=== PATIENT | male | born 1985 | race Caucasian/White ===

== ENCOUNTER 2017-07-15 19:06 | Emergency (ER) | payer OTHER ==
[2017-07-15 19:35] VITALS: BP 128/83
--- NOTE | 2017-07-15 21:19 | UC ---
Respiratory Complaint HPI - HPI Summary HPI Summary: 32 year old smoker who is here with complaints of cough. COUGH TIMES 2-3 DAYS, CHILLS, TIRED, WEAKNESS, STOMACH ACHE YESTERDAY. PT STATES LAST WEEK HE FELT DIZZY, HAD NAUSEA, DIARRHEA. He was ill last week, started to get better for a couple days and now with worsened cough, SOB at times and productive cough. He has been either not smoking or only smoking 2 cigs per day due to SOB [ End ] - History of Current Complaint Chief Complaint: UCGeneralIllness Stated Complaint: RESPIRATORY Time Seen by Provider: 07/15/17 20:59 Hx Obtained From: Family/Osteology Teacher Onset/Duration: Gradual Onset Timing: Constant Severity Initially: Mild Severity Currently: Moderate Character: Cough: Productive Alleviating Factors: Nothing Associated Signs And Symptoms: Positive: Wheezing, URI, Nasal Congestion - Allergies/Home Medications Allergies/Adverse Reactions: Allergies Allergy/AdvReac Type Severity Reaction Status Date / Time Latex Allergy Rash Verified 07/15/17 19:35 PMH/Surg Hx/FS Hx/Imm Hx Previously Healthy: Yes - Surgical History Surgical History: Yes Surgery Procedure, Year, and Place: L shoulder. jaw - Family History Known Family History: Positive: Hypertension - Social History Occupation: Employed Full-time - [employer] Lives: With Family - grandparents Alcohol Use: Rare Substance Use Type: Marijuana Substance Use Comment - Amount & Last Used: "every couple of days" Smoking Status (MU): Heavy Every Day Tobacco Smoker Type: Cigarettes Amount Used/How Often: <1/2 PPD Length of Time of Smoking/Using Tobacco: 10 Years Have You Smoked in the Last Year: Yes Household Exposure Type: Cigarettes Cessation Counseling: Patient Advised to Stop - Immunization History Most Recent Influenza Vaccination: Not the 2015/2016 Season Review of Systems Constitutional: Fatigue ENT: Sore Throat, Nasal Discharge Respiratory: Cough All Other Systems Reviewed And Are Negative: Yes Physical Exam Triage Information Reviewed: Yes Appearance: Well-Appearing, No Pain Distress, Well-Nourished Vital Signs: Initial Vital Signs Temp 98 F 07/15/17 19:28 Pulse 83 07/15/17 19:28 Resp 16 07/15/17 19:28 BP 128/83 07/15/17 19:28 Pulse Ox 100 07/15/17 19:28 Vital Signs Reviewed: Yes Eye Exam: Normal ENT Exam: Normal Dental Exam: Normal Neck exam: Normal Respiratory Exam: Normal Respiratory: Positive: Chest non-tender, No respiratory distress, No accessory muscle use, Wheezing - mild expiratory LLL. Negative: Respiratory distress Cardiovascular Exam: Normal Musculoskeletal Exam: Normal Neurological Exam: Normal Psychological Exam: Normal Skin Exam: Normal UC Diagnostic Evaluation - Laboratory O2 Sat by Pulse Oximetry: 100 Respiratory Course/Dx - Course Course Of Treatment: With the double sickening at this time will start antibiotics as his SOB/cough worsening afer initially improving and now worsened concern for worsening bronchitis - Differential Dx/Diagnosis Differential Diagnosis/HQI/PQRI: Bronchitis, Lower Resp Infection, Sinusitis Provider Diagnoses: Bronchitis / tobacco use disorder Discharge - Discharge Plan Condition: Good Disposition: HOME Prescriptions: Doxycycline (Monohydrate) [Doxycycline Monohydrate] 100 mg PO BID #20 cap Patient Education Materials: Acute Bronchitis (ED), How to Stop Smoking (ED) Forms: *Work Release Referrals: Jon Gomez MD [Primary Care Provider] - 4 Days
[2017-07-15] MEDS ORDERED: Doxycycline (NF) 100 MG TAB PO ONE (21:24)
[2017-07-15] MEDS ORDERED: DOXYcycline CAP(*) 100 MG PO ONE (21:28)
== END 2017-07-15 21:33 | disposition home or self-care (01) ==
LOC: UCCORT 19:06
DX: J40 Bronchitis, not specified as acute or chronic (principal); Z91.040 Latex allergy status; F17.210 Nicotine dependence, cigarettes, uncomplicated
CPT/HCPCS: 99212; A9270-GY; G0463

== ENCOUNTER 2017-07-31 13:22 | Emergency (ER) | payer OTHER ==
[2017-07-31 16:05] VITALS: BP 132/81
--- NOTE | 2017-07-31 16:24 | UC ---
Respiratory Complaint HPI - HPI Summary HPI Summary: Nasal congestion, chest congestion, cough and nausea since this morning. Worse since this morning. Vomited x 1. Started last week with URI. - History of Current Complaint Chief Complaint: UCGeneralIllness Stated Complaint: SINUS COMPLAINT Time Seen by Provider: 07/31/17 16:12 Hx Obtained From: Patient Onset/Duration: Gradual Onset, Lasting Weeks - 1, Worse Since - this morning with nausea vomiting and sweats. Character: Cough: Nonproductive Associated Signs And Symptoms: Positive: Fever, Chills, URI, Nasal Congestion, Sinus Discomfort Related History: Seasonal Allergies - Risk Factors Pulmonary Embolism Risk Factors: Smoking Cardiac Risk Factors: Smoking - Allergies/Home Medications Allergies/Adverse Reactions: Allergies Allergy/AdvReac Type Severity Reaction Status Date / Time Latex Allergy Rash Verified 07/31/17 16:02 Home Medications: Home Medications Sertraline* [Zoloft*] 50 mg PO DAILY 07/31/17 [History Confirmed 07/31/17] PMH/Surg Hx/FS Hx/Imm Hx Previously Healthy: Yes Psychological History: Depression - Surgical History Surgical History: Yes Surgery Procedure, Year, and Place: L shoulder. jaw - Family History Known Family History: Positive: Hypertension Negative: Cardiac Disease, Diabetes - Social History Occupation: Employed Full-time Lives: With Family Alcohol Use: Rare Substance Use Type: None Substance Use Comment - Amount & Last Used: "every couple of days" Smoking Status (MU): Heavy Every Day Tobacco Smoker Type: Cigarettes Amount Used/How Often: 1/2 PPD Length of Time of Smoking/Using Tobacco: 10 Years Have You Smoked in the Last Year: Yes Household Exposure Type: Cigarettes Cessation Counseling: Patient Advised to Stop - Immunization History Most Recent Influenza Vaccination: Not the 2015/2016 Season Review of Systems Constitutional: Fever, Chills ENT: Nasal Discharge, Sinus Congestion Respiratory: Shortness Of Breath, Cough Is Patient Immunocompromised?: No All Other Systems Reviewed And Are Negative: Yes Physical Exam Triage Information Reviewed: Yes Appearance: No Pain Distress, Well-Nourished, Ill-Appearing Vital Signs: Initial Vital Signs Temp 98.2 F 07/31/17 16:02 Pulse 79 07/31/17 16:02 Resp 16 07/31/17 16:02 BP 132/81 07/31/17 16:02 Pulse Ox 99 07/31/17 16:02 Vital Signs Reviewed: Yes Eyes: Positive: Conjunctiva Inflamed ENT: Positive: Nasal congestion, TMs normal - with some retraction Neck exam: Normal Respiratory: Positive: Wheezing - expiratory wheeze with coughing Cardiovascular Exam: Normal Musculoskeletal Exam: Normal Neurological Exam: Normal Psychological Exam: Normal Skin Exam: Normal UC Diagnostic Evaluation - Laboratory O2 Sat by Pulse Oximetry: 99 Respiratory Course/Dx - Differential Dx/Diagnosis Differential Diagnosis/HQI/PQRI: Asthma, Lower Resp Infection, Sinusitis Provider Diagnoses: Acute URI. Acute sinusitis. Acute bronchospasm Discharge - Discharge Plan Condition: Stable Disposition: HOME Prescriptions: Ondansetron ODT TAB* [Zofran 4 MG Odt TAB*] 4 mg PO Q6H PRN #14 tab.odt PRN Reason: Nausea/Vomiting Sulfamethox/Trimethoprim DS* [Bactrim DS 800/160 TAB*] 1 tab PO BID #20 tab predniSONE TAB* [Deltasone TAB*] 20 mg PO DAILY #18 tab Patient Education Materials: Upper Respiratory Infection (ED), Wheezing (ED), Prednisone (By mouth), Sinusitis (ED), Sulfamethoxazole/Trimethoprim (By mouth) , Ondansetron (By mouth) Forms: *Work Release Additional Instructions: Weesh SINUS RINSE: CHECK OUT AT [employer] Saline nasal wash helps with mucous, allergies and congestion. It can be used up to twice a day or only as needed. Use lukewarm tap water. It does not have to be sterilized or distilled water. Do 1/3 on each side and snort out of both nostrils. Repeat the process with 1/6 of the bottle on each side with snorting in between to finish the solution in the bottle Smoking Cessation Tricks. 1. Cut down by 1 cigarette per day every 2-3 days. Write the number of smokes for that day on the calendar. 2. Identify triggers to smoking: after meals, on the phone, in the car, with coffee, on breaks at work, etc. 3. Formulate a plan with a behavior to replace the smoking. Fireballs in the car , doodle pad on the phone, flavored creamer for the coffee, go for a walk after a meal or on break at work. 4. For stress smokes do deep breathing relaxation. Breath deep in through the nose hold the breath in for a few seconds then breath out slowly through the mouth.
== END 2017-07-31 16:38 | disposition home or self-care (01) ==
LOC: UCCORT 13:22
DX: J01.90 Acute sinusitis, unspecified (principal); J98.01 Acute bronchospasm; R11.2 Nausea with vomiting, unspecified; F32.9 Major depressive disorder, single episode, unspecified; F17.210 Nicotine dependence, cigarettes, uncomplicated; Z91.040 Latex allergy status
CPT/HCPCS: 99212; G0463

== ENCOUNTER 2018-01-26 12:29 | Emergency (ER) | payer OTHER ==
[2018-01-26 14:07] VITALS: BP 119/73
--- NOTE | 2018-01-26 14:11 | UC ---
Throat Pain/Nasal Mariano HPI - HPI Summary HPI Summary: Pt presents with left ear pain that began 2 days ago. He tells me that about 2 months ago he had an issue with his right ear that caused him to need steroid injections into the ear and emergent care at [facility] - things are fine with that now, but over the last 2 days has developed pain in his left ear with some sinus congestion. He denies fever, chills, cough, SOB, chest pain, abdominal pain. - History of Current Complaint Chief Complaint: UCEar Stated Complaint: EAR/SINUS COMP Time Seen by Provider: 01/26/18 14:11 Hx Obtained From: Patient Severity: Moderate Pain Intensity: 6 Pain Scale Used: 0-10 Numeric - Allergies/Home Medications Allergies/Adverse Reactions: Allergies Allergy/AdvReac Type Severity Reaction Status Date / Time furosemide [From Lasix] Allergy Intermediate Rash Verified 01/26/18 14:08 Home Medications: Home Medications Buprenorphine/Naloxone SL TAB* [Suboxone 8-2 mg SL TAB*] 1 tab SL DAILY [History Confirmed 01/26/18] PMH/Surg Hx/FS Hx/Imm Hx Previously Healthy: Yes - Surgical History Surgical History: Yes Surgery Procedure, Year, and Place: L shoulder. jaw - Family History Known Family History: Positive: Hypertension Negative: Cardiac Disease, Diabetes - Social History Lives: With Family Alcohol Use: Rare Substance Use Type: None Substance Use Comment - Amount & Last Used: "every couple of days" Smoking Status (MU): Heavy Every Day Tobacco Smoker Type: Cigarettes Amount Used/How Often: 1/2 PPD Length of Time of Smoking/Using Tobacco: 10 Years Have You Smoked in the Last Year: Yes Household Exposure Type: Cigarettes - Immunization History Most Recent Influenza Vaccination: Not the 2015/2016 Season Review of Systems Constitutional: Negative Skin: Negative Eyes: Negative ENT: Ear Ache, Sinus Congestion Respiratory: Negative Cardiovascular: Negative Gastrointestinal: Negative Neurovascular: Negative Neurological: Negative Psychological: Negative All Other Systems Reviewed And Are Negative: Yes Physical Exam Triage Information Reviewed: Yes Appearance: Well-Appearing, No Pain Distress, Well-Nourished Vital Signs: Initial Vital Signs Temp 97.1 F 01/26/18 14:03 Pulse 86 01/26/18 14:03 Resp 18 01/26/18 14:03 BP 119/73 01/26/18 14:03 Pulse Ox 100 01/26/18 14:03 Vital Signs Reviewed: Yes Eyes: Positive: Conjunctiva Clear. Negative: Conjunctiva Inflamed, Discharge ENT: Positive: Hearing grossly normal, Pharynx normal, Nasal congestion, TM bulging - LEft ear, TM red - Left ear, Uvula midline. Negative: Pharyngeal erythema, Nasal drainage, Tonsillar swelling, Tonsillar exudate, Hoarse voice, Sinus tenderness Neck: Positive: Supple, Nontender, No Lymphadenopathy Respiratory: Positive: Lungs clear, Normal breath sounds, No respiratory distress, No accessory muscle use Cardiovascular: Positive: RRR, No Murmur, Pulses Normal Neurological: Positive: Alert Psychological: Positive: Age Appropriate Behavior Skin: Negative: rashes Throat Pain/Nasal Course/Dx - Course Course Of Treatment: Left Otitis media - Differential Dx/Diagnosis Provider Diagnoses: Otitis media left Discharge - Sign-Out/Discharge Documenting (check all that apply): Discharge - Discharge Plan Condition: Stable Disposition: HOME Prescriptions: Amoxicillin/Clavulanate TAB* [Augmentin TAB 875*] 875 mg PO BID #20 tab Patient Education Materials: Ear Infection (ED) Referrals: Jon Gomez MD [Primary Care Provider] - Additional Instructions: If you develop a fever, shortness of breath, chest pain, new or worsening symptoms - please call your PCP or go to the ED. - Billing Disposition and Condition Condition: STABLE Disposition: HOME
== END 2018-01-26 14:21 | disposition home or self-care (01) ==
LOC: UCCORT 12:29
DX: H66.92 Otitis media, unspecified, left ear (principal); Z88.8 Allergy status to other drugs, medicaments and biological substances; F17.210 Nicotine dependence, cigarettes, uncomplicated
CPT/HCPCS: 99212; G0463

== ENCOUNTER 2019-08-03 12:06 | Emergency (ER) | payer SELFPAY ==
[2019-08-03 12:58] VITALS: BP 135/81
--- NOTE | 2019-08-03 13:26 | UC ---
Throat Pain/Nasal Mariano HPI - HPI Summary HPI Summary: 34 yo man with history of chronic tinnitus and right hearing loss, with 2 day history of malaise, sinus congestion, bilateral ear pain, and no fever. - History of Current Complaint Chief Complaint: UCGeneralIllness Stated Complaint: BILATERAL EAR PAIN,CHILLS,LU,LOW ENERGY Time Seen by Provider: 08/03/19 13:18 Hx Obtained From: Patient Onset/Duration: Gradual Onset, Lasting Days - 2 Severity: Moderate Pain Intensity: 7 Cough: Nonproductive Associated Signs & Symptoms: Positive: Dysphagia, Sinus Discomfort - Epiglottits Risk Factors Epiglottis Risk Factors: Negative - Allergies/Home Medications Allergies/Adverse Reactions: Allergies Allergy/AdvReac Type Severity Reaction Status Date / Time latex Allergy Hives Verified 08/03/19 12:59 PMH/Surg Hx/FS Hx/Imm Hx Previously Healthy: Yes - Surgical History Surgical History: Yes Surgery Procedure, Year, and Place: L shoulder. jaw - Family History Known Family History: Positive: Hypertension, Other - grandmother has hearing loss Negative: Cardiac Disease, Diabetes - Social History Occupation: Employed Full-time Lives: With Family Alcohol Use: Rare Substance Use Type: None Substance Use Comment - Amount & Last Used: "every couple of days" Smoking Status (MU): Heavy Every Day Tobacco Smoker Type: Cigarettes Amount Used/How Often: <1/2 PPD Length of Time of Smoking/Using Tobacco: 10 Years Have You Smoked in the Last Year: Yes Household Exposure Type: Cigarettes - Immunization History Most Recent Influenza Vaccination: Not the 2016/2016 Season Review of Systems All Other Systems Reviewed And Are Negative: Yes Constitutional: Positive: Fatigue Skin: Positive: Negative Eyes: Positive: Negative ENT: Positive: Sore Throat, Ear Ache, Sinus Pain/Tenderness Respiratory: Positive: Negative Gastrointestinal: Positive: Nausea Genitourinary: Positive: Negative Motor: Positive: Negative Neurovascular: Positive: Negative Musculoskeletal: Positive: Negative Neurological: Positive: Negative Psychological: Positive: Negative Is Patient Immunocompromised?: No Physical Exam Triage Information Reviewed: Yes Appearance: No Pain Distress, Ill-Appearing - looks fatigued. Vital Signs: Initial Vital Signs Temp 98.1 F 08/03/19 12:53 Pulse 75 08/03/19 12:53 Resp 20 08/03/19 12:53 BP 135/81 08/03/19 12:53 Pulse Ox 98 08/03/19 12:53 Eyes: Positive: Conjunctiva Clear ENT: Positive: Pharyngeal erythema, TM dull - bilaterally, TM red - left greater than right erythema, no bulging. Dental Exam: Normal Respiratory: Positive: Lungs clear, Normal breath sounds Cardiovascular: Positive: RRR, No Murmur Throat Pain/Nasal Course/Dx - Course Course Of Treatment: amoxicillin for treatment of otitis/sinuses - Differential Dx/Diagnosis Differential Diagnosis/HQI/PQRI: Otitis Media, Sinusitis, URI Provider Diagnosis: Otitis media Discharge ED - Sign-Out/Discharge Documenting (check all that apply): Patient Departure All imaging exams completed and their final reports reviewed: No Studies - Discharge Plan Condition: Stable Disposition: HOME Prescriptions: Amoxicillin PO (*) [Amoxicillin 500 MG CAP*] 500 mg PO TID #21 cap Patient Education Materials: Ear Infection (ED) Forms: *Work Release Referrals: Jon Gomez MD [Primary Care Provider] - Additional Instructions: Amoxicillin has been prescribed to treat the infection in your ears and sinuses. - Billing Disposition and Condition Condition: STABLE Disposition: Home
== END 2019-08-03 13:40 | disposition home or self-care (01) ==
LOC: UCCORT 12:06
DX: H66.93 Otitis media, unspecified, bilateral (principal); H93.19 Tinnitus, unspecified ear; R09.81 Nasal congestion; J02.9 Acute pharyngitis, unspecified; F17.210 Nicotine dependence, cigarettes, uncomplicated; R53.83 Other fatigue; Z91.040 Latex allergy status
CPT/HCPCS: 99212; G0463